=== PATIENT | male | born 1955 | race African-American/Black ===

== ENCOUNTER → 2017-05-11 | Day surgery (SDC) | payer BC ==
[~2017-05-11] MED LIST: ALLOPURINOL300 MG PO; LOSARTAN-HCTZ1 EACH PO
--- NOTE | ~2017-05-11 | OR ---
Unit #: [id number] #: [id number] Patient: ESPERANZA CARRIZALES [id number] [address] [address] [id number] O MR#: [id number] NAME: ESPERANZA CARRIZALES ROOM: Date of Procedure: 05/11/2017 Admission Date: 05/11/2017 Surgeon: Mike Neff M.D. : 1955 Attending Physician: Mike Neff M.D. Primary Care Physician: Rosa Devries Aprn OPERATIVE REPORT PROCEDURE PERFORMED Colonoscopy with snare polypectomy, multiple. INDICATIONS FOR PROCEDURE The patient with average risk for colorectal cancer, here for screening colonoscopy. MEDICATIONS Monitored anesthesia. POSTOPERATIVE FINDINGS 1. Colonoscopy completed to cecum. Prep was good. 2. Polyps x4, transverse colon, 4 to 6 mm each, snared and sent for pathology. 3. Polyp 6 to 8 mm, descending colon, snared and sent for histopathology. 4. Rest of the colon exam to cecum was normal. PLAN Follow up on pathology report. Repeat colonoscopy in 3 years. DESCRIPTION OF PROCEDURE The patient was explained of the procedure, risks, and benefits along with risks and benefits of anesthesia. He was brought to the endoscopy room. Propofol anesthesia was given. Rectal exam was done, which was normal. Colonoscope was lubricated, passed up the rectum, advanced under direct vision all the way to the cecum. Several polyps were removed as described. I retroflexed in the rectum, small hemorrhoids seen. The scope was gently pulled out. He tolerated it well. No major complications were seen. Dictated by... Ottoniel Velázquez/yunior TD: 05/11/2017 16:55 JOB #: [id number] Unit #: [id number] #: [id number] Patient: ESPERANZA CARRIZALES OPERATIVE REPORT Page 1 of 1 X Mike Neff MD PROCEDURE OPERATIVE NOTE
== END | disposition home or self-care (01) ==
LOC: COPS 02-23 12:00
DX: Z12.11 Encounter for screening for malignant neoplasm of colon (principal); D12.3 Benign neoplasm of transverse colon; D12.4 Benign neoplasm of descending colon; K64.9 Unspecified hemorrhoids; I10 Essential (primary) hypertension; M10.9 Gout, unspecified; Z79.899 Other long term (current) drug therapy
CPT/HCPCS: 88305